=== PATIENT | female | born 1950 | race African-American/Black ===

== ENCOUNTER 2020-10-19 09:42 | Day surgery (SDC) | payer MEDICARE, OTHER ==
--- NOTE | 2020-10-18 09:53 | NUR ---
ATTEMPTED TO CONTACT PT TO CONFIRM APPT TOMORROW - PT PHONE HAS BEEN DISCONNECTED OR NO LONGER IN SERVICE.
--- NOTE | 2020-10-18 10:52 | NUR ---
REC'D NEW NUMBER FROM [facility] FOR PT CONTACTED PT @ PT CONFIRMED APPT TOMORROW, NPO AFTER MIDNIGHT TONIGHT, PT STOPPED ASA 10/14.
[2020-10-19] VITALS (7 sets, daily range): BP systolic 132–151; BP diastolic 71–87; Ht 167.6 cm; Wt 90.9 kg
[~2020-10-19] VITALS: Ht 167.6 cm; Wt 90.9 kg
[2020-10-19 10:23] LABS: BASOPHILS 0.8 % (0-2); EOSINOPHILS 2.6 % (0-7); HEMATOCRIT 36.8 % (36.0-48.0); HEMOGLOBIN 12.3 g/dL (12-16); IMMATURE GRANULOCYTES 0.3 % (0-5); INR 1.03 (0.85-1.17); LYMPHOCYTE ABS# 1.88 10x3/uL (1.18-3.74); LYMPHOCYTES 28.7 % (15-50); MCH 30.1 pg (26.0-34.0); MCHC 33.4 g/dL (31.0-37.0); MCV 90.2 fL (80.0-100.0); MEAN PLATELET VOLUME 9.2 fL (7.4-10.4); NEUTROPHIL ABS# 4.03 10x3/uL (1.56-6.13); NEUTROPHILS 61.6 % (40-80); PLATELET COUNT 270 10x3/uL (130-400); PROTIME 12.5 SECONDS (11.6-15.0); RBC 4.08 10x6/uL (4.00-5.40); RDW 13.1 % (11.5-14.5); WBC 6.5 10x3/uL (4.8-10.8)
[2020-10-19 10:26] LABS: ALBUMIN 3.8 g/dL (3.4-5.0); ANION GAP 16.2 mmol/L (8-16); BILIRUBIN - TOTAL 0.34 mg/dL (0.2-1.3); CALCIUM 9.4 mg/dL (8.5-10.1); CARBON DIOXIDE 25.7 mmol/L (21.0-32.0); POTASSIUM - SERUM 3.9 mmol/L (3.5-5.1); PROTEIN - SERUM 7.7 g/dL (6.4-8.2)
[2020-10-19] MEDS ORDERED: ACETAMINOPHEN500 M1 PO (11:08)
[2020-10-19] MEDS ORDERED: CELEXA20 MG PO (11:08)
[2020-10-19] MEDS ORDERED: COZAAR100 MG PO (11:09)
[2020-10-19] MEDS ORDERED: ZYLOPRIM100 MG PO (11:09)
[2020-10-19] MEDS ORDERED: TOPROL XL50 MG PO (11:09)
[2020-10-19] MEDS ORDERED: FEMARA2.5 MG PO (11:10)
[2020-10-19] MEDS ORDERED: BAYER CHEWABLE81 MG PO (11:10)
[2020-10-19] MEDS ORDERED: NORVASC10 MG PO (11:10)
[2020-10-19] MEDS ORDERED: GLIPIZIDE5 MG PO (11:10)
[2020-10-19] MEDS ORDERED: LIPITOR40 MG PO (11:11)
[2020-10-19] MEDS ORDERED: CLARITIN 10 MG10 MG PO (11:11)
[2020-10-19 11:20] LABS: APTT 23.6 SECONDS (22.8-39.4)
--- NOTE | 2020-10-19 17:12 | NUR ---
PATIENT ADMITTED TO ROOM 2209. ADMISSION COMPLETE. DRSG C/D/I TO RIGHT UPPER BACK. SCD EDUCATION PROVIDED AND SCDS PLACED ON PATIENT.
--- NOTE | 2020-10-19 20:00 | NUR ---
PT HOB 30 DEGREES AT THIS TIME. CONTINUES TO BE ON BEDREST UNTIL 2200. PT VERBALIZED UNDERSTANDING OF THIS. PLACED ON AND OFF BEDPAN TO VOID. REQUESTED AND GIVEN SANDWICH TRAY AND ORANGE JUICE. DENIES PAIN AT THIS TIME. RIGHT SIDE DRESSING CDI. DENIES NEEDS. FAMILY AT BEDSIDE, CL IN REACH
--- NOTE | 2020-10-19 22:00 | NUR ---
PT OFF BEDREST AT THIS TIME. ASSISTED TO BATHROOM TO VOID. PT AMBULATED WELL WTIHOUT ASSIST. DENIES PAIN OR NEEDS. CL IN REACH
[2020-10-20] VITALS: BP 139/90
[2020-10-20 04:00] VITALS: BP 138/78
--- NOTE | 2020-10-20 06:00 | NUR ---
PT STATES THROAT HURTS, GAVE ICE WATER. DENIES OTHER NEEDS. CL IN REACH
--- NOTE | 2020-10-20 07:36 | NUR ---
patient awake and alert this morning, c/o no pain except scratchy throat. spouse at bedside, patient states she is ready for dc. no other needs voiced, continue with plan of care
[2020-10-20 08:19] LABS: ANION GAP 16.9 mmol/L (8-16); CALCIUM 8.6 mg/dL (8.5-10.1); CARBON DIOXIDE 23.3 mmol/L (21.0-32.0); CREATININE - SERUM 1.9 mg/dL (0.6-1.3); POTASSIUM - SERUM 4.2 mmol/L (3.5-5.1)
[2020-10-20 09:10] VITALS: BP 137/76
--- NOTE | 2020-10-20 10:03 | NUR ---
I have reviewed this patient and I concur with the Shift Assessment completed by the Licensed Practical Nurse today this shift.
[2020-10-20] MEDS ORDERED: CIPRO500 MG PO (10:22)
--- NOTE | 2020-10-20 12:26 | NUR ---
PATIENT DC HOME, WENT OVER DC INSTRUCTIONS WITH PATIENT AND SPOUSE. ALL QUESTIONS ANSWERED. IV DC WITH CATHETER INTACT
== END 2020-10-20 12:35 | disposition home or self-care (01) ==
LOC: D.SP 09:42 → D.RAD 12:00 → D.SP 12:00 → D.MS 16:58 → D.SP 10-20 12:35
PROVIDERS: ATTEND General Practice
DX: N28.89 Other specified disorders of kidney and ureter (principal); I10 Essential (primary) hypertension; E78.5 Hyperlipidemia, unspecified; E11.9 Type 2 diabetes mellitus without complications; Z85.3 Personal history of malignant neoplasm of breast